=== PATIENT | male | born 1950 | race Caucasian/White ===

== ENCOUNTER 2020-03-23 08:15 | Emergency (ER) | payer OTHER ==
[~2020-03-23 08:15] MED LIST: DONEPEZIL HCL5 MG PO; FOLTX TABLET1 EAC1; LISINOPRIL-HCT1 EAC1 PO; LISINOPRIL40 MG PO; METFORMIN HCL500 MG PO; SINEMET 25-1001 EACH PO; VITAMIN B-121000 MC1 PO
[2020-03-23 09:38] LABS: BASOPHIL 0.6 % (0-2); EOSINOPHIL 1.5 % (0-7); HCT 42.6 % (42.0-52.0); HGB 13.9 g/dl (13.2-18.0); LYMPHOCYTE 13.2 % (15-48); MCHC 32.6 g/dL (32.0-36.0); MCV 98.2 fL (78.0-100.0); MONOCYTE 5.7 % (0-12); NEUTROPHIL 78.7 % (41-80); NRBC 0; PLT 262 K/uL (150-400); RBC 4.34 M/uL (4.70-6.00); RDW 13.4 % (11.5-14.0)
[2020-03-23 10:29] LABS: ALBUMIN 3.7 g/dL (3.4-5.0); BILIRUBIN - TOTAL 0.6 mg/dL (0.2-1.0); BUN/CREAT RATIO (CALC) 12.4 RATIO; CREATININE 1.69 mg/dL (0.67-1.17); GLOBULIN (CALCULATION) 3.5 g/dL; TOTAL PROTEIN 7.2 g/dL (6.4-8.2)
[2020-03-23 11:13] LABS: BILIRUBIN NEGATIVE (NEGATIVE); BLOOD 3+ Ery/uL (NEGATIVE); CLARITY SLIGHTLY HAZY (CLEAR); COLOR YELLOW (YELLOW); GLUCOSE (U) NORMAL (NORMAL); LEUKOCYTES NEGATIVE Leu/uL (NEGATIVE); NITRITE NEGATIVE (NEGATIVE); PROTEIN NEGATIVE (NEGATIVE); UROBILINOGEN 0.2 mg/dL (0.2-1.0)
[2020-03-23 11:17] LABS: URINARY WBC RARE
[2020-03-23 11:18] LABS: URINARY RBC TNTC
== END 2020-03-23 12:00 | disposition home or self-care (01) ==
LOC: FER 08:15
PROVIDERS: Emergency Medicine
DX: S09.90XA Unspecified injury of head, initial encounter (principal); S00.81XA Abrasion of other part of head, initial encounter; E10.9 Type 1 diabetes mellitus without complications; I10 Essential (primary) hypertension; G20 Parkinson's disease; Z88.0 Allergy status to penicillin; W01.198A Fall on same level from slipping, tripping and stumbling with subsequent striking against other object, initial encounter
CPT/HCPCS: 36415; 70450; 80053; 81001; 83735; 84145; 84443; 84484; 85025; 93005; J7030

== ENCOUNTER 2020-05-22 15:29 | Day surgery (SDCO) | payer OTHER ==
[2020-05-22 16:29] LABS: BASOPHIL 0.5 % (0-2); EOSINOPHIL 1.9 % (0-7); HCT 47.7 % (42.0-52.0); HGB 15.8 g/dl (13.2-18.0); LYMPHOCYTE 12.5 % (15-48); MCH 32.1 pg (25.0-31.0); MCHC 33.1 g/dL (32.0-36.0); MONOCYTE 7.7 % (0-12); MPV 10.4 fL (6.0-9.5); NEUTROPHIL 76.9 % (41-80); NRBC 0; PLT 326 K/uL (150-400); RBC 4.92 M/uL (4.70-6.00); RDW 13.4 % (11.5-14.0); WBC 16.8 K/uL (4.0-10.5)
[2020-05-22 16:45] LABS: ALBUMIN 4.5 g/dL (3.4-5.0); BILIRUBIN - TOTAL 0.3 mg/dL (0.2-1.0); BUN/CREAT RATIO (CALC) 22.9 RATIO; CREATININE 1.4 mg/dL (0.67-1.17); GLOBULIN (CALCULATION) 4.2 g/dL; POTASSIUM 4.3 mmol/L (3.5-5.1); TOTAL PROTEIN 8.7 g/dL (6.4-8.2)
[2020-05-22 16:49] LABS: LACTIC ACID 3.8 mmol/L (0.4-1.9)
[2020-05-22 17:58] LABS: CORONAVIRUS 2019 SARS-COV-2 NEGATIVE (NEGATIVE); INFLUENZA A NAA NEGATIVE (NEGATIVE)
--- NOTE | 2020-05-22 22:19 | NUR ---
HOME MEDICATION INFORMATION FROM [facility] ONLY GAVE DOSES FOR METFORMIN AND LISINOPRIL/HCTZ WHICH WAS VERIFIED IN COMPUTER, PATIENT UNABLE TO GIVE INFO ON THIS SO WILL REPORT TO SHIFT TOMORROW [facility]
--- NOTE | 2020-05-22 22:47 | NUR ---
PATIENT POOR HISTORIAN, WAS ABLE TO GET INFO FROM SON AND FROM PAPERWORK SENT FROM [facility] PAST ASSESSMENT,
[2020-05-23 02:50] LABS: BILIRUBIN NEGATIVE (NEGATIVE); BLOOD NEGATIVE Ery/uL (NEGATIVE); CLARITY CLEAR (CLEAR); COLOR YELLOW (YELLOW); GLUCOSE (U) NORMAL (NORMAL); LEUKOCYTES NEGATIVE Leu/uL (NEGATIVE); NITRITE NEGATIVE (NEGATIVE); PROTEIN NEGATIVE (NEGATIVE); SPECIFIC GRAVITY 1.025 (1.001-1.030); UROBILINOGEN 0.2 mg/dL (0.2-1.0); pH 5.5 (5.0-9.0)
[2020-05-23 06:18] LABS: BASOPHIL 0.3 % (0-2); EOSINOPHIL 6.9 % (0-7); HCT 35.9 % (42.0-52.0); LYMPHOCYTE 18.1 % (15-48); MCH 32.6 pg (25.0-31.0); MCHC 33.4 g/dL (32.0-36.0); MCV 97.6 fL (78.0-100.0); MONOCYTE 9.9 % (0-12); MPV 10.4 fL (6.0-9.5); NEUTROPHIL 64.5 % (41-80); NRBC 0; PLT 220 K/uL (150-400); RBC 3.68 M/uL (4.70-6.00); RDW 13.3 % (11.5-14.0); WBC 9.9 K/uL (4.0-10.5)
[2020-05-23 06:40] LABS: ALBUMIN 3.2 g/dL (3.4-5.0); BILIRUBIN - TOTAL 0.6 mg/dL (0.2-1.0); CREATININE 1.18 mg/dL (0.67-1.17); GLOBULIN (CALCULATION) 2.7 g/dL; POTASSIUM 3.9 mmol/L (3.5-5.1)
[2020-05-23 06:43] LABS: TOTAL PROTEIN 5.9 g/dL (6.4-8.2)
--- NOTE | 2020-05-23 15:11 | NUR ---
MET WITH PT. HE STATES THAT HE RESIDES A [facility]. HE STATES THAT HE IS INDEPENDENT. HE DOES HAVE A ROLLING WALKER AND SHOWER SEAT. HE IS NOT INTERESTED IN HH. ADVISED THAT IF THE DOCTOR DOES ORDER HH I WILL SPEAK WITH HIM REGARDING HIS CHOICE.
[2020-05-24 06:04] LABS: HCT 34.6 % (42.0-52.0); HGB 11.8 g/dl (13.2-18.0); MCH 33.1 pg (25.0-31.0); MCHC 34.1 g/dL (32.0-36.0); MCV 97.2 fL (78.0-100.0); MPV 10.3 fL (6.0-9.5); RBC 3.56 M/uL (4.70-6.00); RDW 13.2 % (11.5-14.0); WBC 6.8 K/uL (4.0-10.5)
[2020-05-24 06:31] LABS: BUN/CREAT RATIO (CALC) 12.1 RATIO; CREATININE 1.07 mg/dL (0.67-1.17); POTASSIUM 3.7 mmol/L (3.5-5.1)
--- NOTE | 2020-05-24 14:39 | NUR ---
05/23 AND 05/24 PATIENT REFUSES TO USE WALKER AND GAIT BELT. PT WILL SOMETIMES USE A WALKER AFTER EDUCATION ON SAFETY IS GIVEN BUT NOT EVERYTIME. PT VERBALIZES UNDERSTANDING OF SAFETY AND STILL REFUSES TO USE
[2020-05-24] MEDS ORDERED: CIPRO500 MG PO ×2 (14:47→15:12)
[2020-05-24] MEDS ORDERED: METRONIDAZOLE500 MG PO ×2 (14:47→15:12)
== END 2020-05-24 16:32 | disposition home or self-care (01) ==
LOC: FER 15:29 → FMS 19:57
PROVIDERS: Emergency Medicine; Hospitalist; Nurse Practitioner; ADMIT Internal Medicine
DX: A41.9 Sepsis, unspecified organism (principal); R65.20 Severe sepsis without septic shock; I12.9 Hypertensive chronic kidney disease with stage 1 through stage 4 chronic kidney disease, or unspecified chronic kidney disease; E11.22 Type 2 diabetes mellitus with diabetic chronic kidney disease; N18.30 Chronic kidney disease, stage 3 unspecified; N17.9 Acute kidney failure, unspecified; R11.2 Nausea with vomiting, unspecified; R11.12 Projectile vomiting; E86.0 Dehydration; G20 Parkinson's disease; F03.90 Unspecified dementia, unspecified severity, without behavioral disturbance, psychotic disturbance, mood disturbance, and anxiety; E11.10 Type 2 diabetes mellitus with ketoacidosis without coma; Z86.73 Personal history of transient ischemic attack (TIA), and cerebral infarction without residual deficits; Z79.84 Long term (current) use of oral hypoglycemic drugs; Z79.899 Other long term (current) drug therapy; Z88.0 Allergy status to penicillin; Z20.822 Contact with and (suspected) exposure to COVID-19
CPT/HCPCS: 36415; 70450; 71045; 80048; 80053; 81003; 82962; 83605; 83690; 84145; 84484; 85025; 87040; 97162; 97530-GP; C9113; G0378; J0692; J1650; J2405; J7030; Q9967; U0002

== ENCOUNTER 2020-08-30 13:14 | Emergency (ER) | payer OTHER ==
[~2020-08-30 13:14] MED LIST changes: +CIPRO500 MG PO; +METRONIDAZOLE500 MG PO
[2020-08-30 13:45] LABS: BASOPHIL 1.3 % (0-2); EOSINOPHIL 9.5 % (0-7); HCT 40.4 % (42.0-52.0); HGB 13.4 g/dl (13.2-18.0); LYMPHOCYTE 20.1 % (15-48); MCH 31.5 pg (25.0-31.0); MCHC 33.2 g/dL (32.0-36.0); MCV 94.8 fL (78.0-100.0); MONOCYTE 10.7 % (0-12); MPV 10.4 fL (6.0-9.5); NRBC 0; PLT 263 K/uL (150-400); RBC 4.26 M/uL (4.70-6.00); WBC 7.8 K/uL (4.0-10.5)
[2020-08-30 13:50] LABS: INR 1.04 (0.9-1.2); PTT 29.1 SECONDS (24.4-34.7)
[2020-08-30 14:04] LABS: ALBUMIN 3.6 g/dL (3.4-5.0); BILIRUBIN - TOTAL 0.6 mg/dL (0.2-1.0); BUN/CREAT RATIO (CALC) 17.4 RATIO; CREATININE 1.15 mg/dL (0.67-1.17); GLOBULIN (CALCULATION) 3.4 g/dL; POTASSIUM 4.6 mmol/L (3.5-5.1)
[2020-08-30 14:22] LABS: CKMB 1.1 ng/mL (0.0-3.6)
[2020-08-30 16:46] LABS: BILIRUBIN NEGATIVE (NEGATIVE); BLOOD NEGATIVE Ery/uL (NEGATIVE); CLARITY CLEAR (CLEAR); COLOR YELLOW (YELLOW); GLUCOSE (U) NORMAL (NORMAL); LEUKOCYTES NEGATIVE Leu/uL (NEGATIVE); NITRITE NEGATIVE (NEGATIVE); PROTEIN NEGATIVE (NEGATIVE); UROBILINOGEN 0.2 mg/dL (0.2-1.0)
== END 2020-08-30 17:20 | disposition home or self-care (01) ==
LOC: FER 13:14
PROVIDERS: Emergency Medicine
DX: R41.0 Disorientation, unspecified (principal); I10 Essential (primary) hypertension; E11.9 Type 2 diabetes mellitus without complications; Z88.0 Allergy status to penicillin; Z79.84 Long term (current) use of oral hypoglycemic drugs; Z79.899 Other long term (current) drug therapy
CPT/HCPCS: 36415; 70450; 71045; 80053; 80061; 81003; 82550; 82553; 83874; 84484; 85025; 85610; 85730; 93005; J7030

== ENCOUNTER 2020-12-22 11:04 | Emergency (ER) | payer OTHER ==
[2020-12-22 12:05] LABS: BASOPHIL 1.3 % (0-2); EOSINOPHIL 7.8 % (0-7); HCT 42.1 % (42.0-52.0); HGB 13.7 g/dl (13.2-18.0); LYMPHOCYTE 20.9 % (15-48); MCH 31.4 pg (25.0-31.0); MCHC 32.5 g/dL (32.0-36.0); MCV 96.3 fL (78.0-100.0); MONOCYTE 12.6 % (0-12); NEUTROPHIL 57.3 % (41-80); NRBC 0; PLT 251 K/uL (150-400); RBC 4.37 M/uL (4.70-6.00); RDW 12.7 % (11.5-14.0); WBC 7.1 K/uL (4.0-10.5)
[2020-12-22 12:26] LABS: ALBUMIN 3.8 g/dL (3.4-5.0); BILIRUBIN - TOTAL 0.3 mg/dL (0.2-1.0); BUN/CREAT RATIO (CALC) 17.1 RATIO; CREATININE 1.4 mg/dL (0.67-1.17); GLOBULIN (CALCULATION) 3.2 g/dL; POTASSIUM 4.2 mmol/L (3.5-5.1)
[2020-12-22 13:38] LABS: LACTIC ACID 3.3 mmol/L (0.4-1.9)
[2020-12-22 14:28] LABS: BILIRUBIN NEGATIVE (NEGATIVE); BLOOD NEGATIVE Ery/uL (NEGATIVE); CLARITY CLEAR (CLEAR); COLOR YELLOW (YELLOW); GLUCOSE (U) NORMAL (NORMAL); LEUKOCYTES NEGATIVE Leu/uL (NEGATIVE); NITRITE NEGATIVE (NEGATIVE); PROTEIN NEGATIVE (NEGATIVE); SPECIFIC GRAVITY 1.025 (1.001-1.030); UROBILINOGEN 0.2 mg/dL (0.2-1.0)
== END 2020-12-22 18:59 | disposition home or self-care (01) ==
LOC: FER 11:04
PROVIDERS: Emergency Medicine
DX: E11.10 Type 2 diabetes mellitus with ketoacidosis without coma (principal); E11.22 Type 2 diabetes mellitus with diabetic chronic kidney disease; I12.9 Hypertensive chronic kidney disease with stage 1 through stage 4 chronic kidney disease, or unspecified chronic kidney disease; N18.9 Chronic kidney disease, unspecified; R41.0 Disorientation, unspecified; Z88.0 Allergy status to penicillin; Z79.84 Long term (current) use of oral hypoglycemic drugs; Z79.899 Other long term (current) drug therapy; Z20.822 Contact with and (suspected) exposure to COVID-19
CPT/HCPCS: 36415; 70450; 71045; 71250; 80053; 81003; 83605; 84145; 84484; 85025; 87040; 87088; 93005; J7040; U0002

== ENCOUNTER 2021-05-23 17:20 | Emergency (ER) | payer OTHER ==
[2021-05-23 21:19] LABS: BILIRUBIN NEGATIVE (NEGATIVE); BLOOD NEGATIVE Ery/uL (NEGATIVE); CLARITY CLEAR (CLEAR); COLOR YELLOW (YELLOW); GLUCOSE (U) NORMAL (NORMAL); LEUKOCYTES NEGATIVE Leu/uL (NEGATIVE); NITRITE NEGATIVE (NEGATIVE); PROTEIN NEGATIVE (NEGATIVE); SPECIFIC GRAVITY 1.025 (1.001-1.030); UROBILINOGEN 0.2 mg/dL (0.2-1.0)
== END 2021-05-23 22:28 | disposition home or self-care (01) ==
LOC: FER 17:20
PROVIDERS: Nurse Practitioner Family
DX: R30.0 Dysuria (principal); I10 Essential (primary) hypertension; Z88.0 Allergy status to penicillin
CPT/HCPCS: 81003; 99283

== ENCOUNTER 2021-08-23 09:41 | Day surgery (SDCO) | payer MEDICARE, OTHER ==
[~2021-08-23] VITALS: Ht 175.3 cm; Wt 94.0 kg
[2021-08-23 10:16] LABS: BASOPHIL 0.4 % (0-2); EOSINOPHIL 0.1 % (0-7); HCT 39.3 % (42.0-52.0); HGB 13.2 g/dl (13.2-18.0); LYMPHOCYTE 6.6 % (15-48); MCH 31.3 pg (25.0-31.0); MCHC 33.6 g/dL (32.0-36.0); MCV 93.1 fL (78.0-100.0); MONOCYTE 9.1 % (0-12); MPV 10.2 fL (6.0-9.5); NEUTROPHIL 83.4 % (41-80); NRBC 0; PLT 276 K/uL (150-400); RBC 4.22 M/uL (4.70-6.00); RDW 12.9 % (11.5-14.0); WBC 15.5 K/uL (4.0-10.5)
[2021-08-23 10:21] LABS: INR 1.01 (0.9-1.2); PTT 20.8 SECONDS (24.9-34.6)
[2021-08-23 10:37] LABS: ALBUMIN 3.9 g/dL (3.4-5.0); BILIRUBIN - TOTAL 0.6 mg/dL (0.2-1.0); BUN/CREAT RATIO (CALC) 18.8 RATIO; CREATININE 2.76 mg/dL (0.67-1.17); GLOBULIN (CALCULATION) 3.4 g/dL; POTASSIUM 4.5 mmol/L (3.5-5.1); TOTAL PROTEIN 7.3 g/dL (6.4-8.2)
[2021-08-23 10:40] LABS: LACTIC ACID 3.8 mmol/L (0.4-1.9)
[2021-08-23] MEDS ORDERED: ARICEPT 5MG TABL5 MG PO (13:50)
[2021-08-23] MEDS ORDERED: CARBIDOPA-LEVO1 EAC6 PO (13:51)
[2021-08-23] MEDS ORDERED: VITAMIN B-121000 MC1 PO (13:52)
[2021-08-23] MEDS ORDERED: PRINIVIL20 MG PO (13:52)
[2021-08-23] MEDS ORDERED: METFORMIN HCL1000 MG PO (13:53)
[2021-08-23 22:35] LABS: BILIRUBIN NEGATIVE (NEGATIVE); BLOOD TRACE-INTACT Ery/uL (NEGATIVE); CLARITY CLEAR (CLEAR); COLOR YELLOW (YELLOW); GLUCOSE (U) NORMAL (NORMAL); LEUKOCYTES NEGATIVE Leu/uL (NEGATIVE); NITRITE NEGATIVE (NEGATIVE); PROTEIN NEGATIVE (NEGATIVE); SPECIFIC GRAVITY 1.025 (1.001-1.030); UROBILINOGEN 0.2 mg/dL (0.2-1.0)
[2021-08-23 22:40] LABS: URINARY RBC RARE; URINARY WBC RARE
[2021-08-23 22:41] LABS: SQUAMOUS EPITHELIAL CELLS RARE
[2021-08-24 07:02] LABS: BASOPHIL 0.8 % (0-2); EOSINOPHIL 6.1 % (0-7); HCT 33.7 % (42.0-52.0); LYMPHOCYTE 22.9 % (15-48); MCH 30.8 pg (25.0-31.0); MCHC 32.6 g/dL (32.0-36.0); MCV 94.4 fL (78.0-100.0); MONOCYTE 11.1 % (0-12); MPV 10.2 fL (6.0-9.5); NEUTROPHIL 58.7 % (41-80); NRBC 0; PLT 219 K/uL (150-400); RBC 3.57 M/uL (4.70-6.00); RDW 13.2 % (11.5-14.0); WBC 7.7 K/uL (4.0-10.5)
[2021-08-24 07:43] LABS: BUN/CREAT RATIO (CALC) 20.9 RATIO; C-REACTIVE PROTEIN 2.4 mg/dL (<=0.90); CREATININE 1.91 mg/dL (0.67-1.17); MAGNESIUM 1.8 mg/dL (1.8-2.4); PHOSPHORUS 3.3 mg/dL (2.6-4.7); POTASSIUM 4.5 mmol/L (3.5-5.1)
[2021-08-24 09:55] LABS: IRON % SATURATION 63.4 %SAT (20-50)
[2021-08-24 10:27] LABS: FOLIC ACID (SERUM) 4.3 ng/mL (8.6-58.9)
--- NOTE | 2021-08-24 14:10 | NUR ---
08/24/21 Mr. Estrada was admitted from Assisted Living. [facility] will accept back per card assembler. Mr. Estrada states that he wishes to return. - Mr. Estrada appears to have cognitive deficits. He does report to have a cane and rw. - [facility] is the PCP.
[2021-08-25 07:40] LABS: BUN/CREAT RATIO (CALC) 19.6 RATIO; C-REACTIVE PROTEIN 0.9 mg/dL (<=0.90); CREATININE 1.58 mg/dL (0.67-1.17); POTASSIUM 4.1 mmol/L (3.5-5.1)
--- NOTE | 2021-08-25 16:35 | NUR ---
CALLED FACILITY AND GAVE REPORT TO TIFFANIE. SPOKE WITH PATIENTS SON ELVIRA WHO STATED HE HAS A [facility] SERVICE THAT WILL BE PICKING UP HIS FATHER TO TRANSPORT HIM TO [facility].
--- NOTE | 2021-08-25 18:16 | NUR ---
[facility] PICKED UP SULY TO TAKE HIM TO [facility]. CALLED AND INFORMED HIM THAT HE IS COMING AND THAT HE HAS HOLTER MONITOR ON AND AN EXTRA ONE WAS SENT. MONITOR AND IVS WERE REMOVED PRIOR TO DISCHARGE.
== END 2021-08-25 18:04 | disposition home or self-care (01) ==
LOC: FER 09:41 → FTCU 11:36
PROVIDERS: Emergency Medicine; Internal Medicine Cardiovascular Disease; ADMIT Internal Medicine
DX: G93.41 Metabolic encephalopathy (principal); G20 Parkinson's disease; F02.80 Dementia in other diseases classified elsewhere, unspecified severity, without behavioral disturbance, psychotic disturbance, mood disturbance, and anxiety; I47.2 Ventricular tachycardia; R00.1 Bradycardia, unspecified; N17.9 Acute kidney failure, unspecified; I12.9 Hypertensive chronic kidney disease with stage 1 through stage 4 chronic kidney disease, or unspecified chronic kidney disease; E11.22 Type 2 diabetes mellitus with diabetic chronic kidney disease; N18.30 Chronic kidney disease, stage 3 unspecified; I95.9 Hypotension, unspecified; R65.10 Systemic inflammatory response syndrome (SIRS) of non-infectious origin without acute organ dysfunction; E87.2 Acidosis; Z86.73 Personal history of transient ischemic attack (TIA), and cerebral infarction without residual deficits; Z20.822 Contact with and (suspected) exposure to COVID-19; Z88.0 Allergy status to penicillin
CPT/HCPCS: 36415; 36600; 70450; 71045; 76770; 80048; 80053; 81001; 82550; 82553; 82607; 82746; 82803; 82962; 83540; 83550; 83605; 83735; 83880; 84100; 84145; 84484; 85025; 85610; 85730; 86140; 87040; 93005; 94010; G0378; J0696; J1650; J1956; J3475; J7030; J7120; U0002